=== PATIENT | male | born 1975 | race Caucasian/White ===

== ENCOUNTER → 2019-07-19 14:46 | Outpatient (CLI) | payer SELFPAY ==
[2019-07-02 14:52] VITALS: BMI 26.4
--- NOTE | 2019-07-19 14:51 | ECHOD_ITS ---
Reason For Study: CAD/ASHD Procedure This was a 2D Doppler, Color Flow transthoracic echocardiogram. Exam performed in department. Left Ventricle Normal size and thickness. The estimated ejection fraction is 65 %. No regional wall motion abnormalities noted. Right Ventricle Normal size and thickness. Normal systolic function. Atria The left atrium is mildly enlarged. Normal right atrium. Normal atrial septum. Mitral Valve The mitral valve is structurally normal. No prolapse or stenosis seen. Tricuspid Valve Normal tricuspid valve. Trivial tricuspid valve insufficiency. Right ventricular systolic pressure estimated to be 29 mmHg. Aortic Valve Trisinus/trileaflet aortic valve. Mild diffuse aortic valve thickening. There is no aortic stenosis. Pulmonic Valve Normal pulmonic valve. Trivial pulmonic valve insufficiency. Great Vessels Normal aortic root. Normal arch. Normal inferior vena cava. Inferior vena cava collapse with sniff. Pericardium/Pleural No pericardial effusion. MMode/2D Measurements & Calculations LVIDd: 4.5 cm IVSd: 1.1 cm Ao root diam: 2.8 cm LVIDs: 3.4 cm LVPWd: 1.0 cm RVDd: 3.7 cm FS: 25.6 % LAV(MOD-bp): 69.8 ml LA A4 area: 21.5 cm2 LA dimension(2D): 3.4 cm LAV(MOD-bp) Indexed: 34.7 ml/m2 LAV(MOD-sp2): 64.4 ml LAV(MOD-sp4): 70.2 ml RA A4 area: 14.1 cm2 Time Measurements MV dec time: 0.18 sec Doppler Measurements & Calculations MV E max logan: 97.3 cm/sec Lat Peak E' Logan: 14.1 cm/sec Med Peak E' Logan: 9.1 cm/sec MV A max logan: 72.7 cm/sec E/E' lat: 6.9 E/E' med: 10.6 MV E/A: 1.3 Ao V2 max: 170.6 cm/sec LV V1 max: 136.2 cm/sec PA V2 max: 95.2 cm/sec Ao max P.7 mmHg LV V1 max P.4 mmHg TR max logan: 242.4 cm/sec TR max P.5 mmHg Interpretation Summary The estimated ejection fraction is 65 %. The left atrium is mildly enlarged. Trivial tricuspid valve insufficiency. Right ventricular systolic pressure estimated to be 29 mmHg. There is no comparison study available. Ordering Physician: Destin Lucas Referring Physician: Kenroy Leslie Performed By: Caitlyn Astorga RDCS, RVT
== END ==
PROVIDERS: Family Provider Family Medicine; PCP Family Medicine; Referring Provider Internal Medicine Cardiovascular Disease; Visit Provider Internal Medicine Cardiovascular Disease
DX: I25.10 Atherosclerotic heart disease of native coronary artery without angina pectoris (principal); I16.0 Hypertensive urgency; I25.2 Old myocardial infarction; Z95.5 Presence of coronary angioplasty implant and graft; E78.5 Hyperlipidemia, unspecified; I10 Essential (primary) hypertension
CPT/HCPCS: 93306

== ENCOUNTER → 2019-07-24 12:52 | Outpatient (CLI) | payer SELFPAY ==
[2019-07-02 14:52] VITALS: BMI 26.4
--- NOTE | 2019-07-24 12:54 | STE_ITS ---
Reason For Study: CAD Stress Results Protocol: Ron Protocol Maximum Predicted HR: 175 bpm Target HR: 149 bpm % Maximum Predicted HR: 86 % DurationHeart Rate Stage (mm:ss) (bpm) BP Comment Baseline 61 114/68No Chest Pain Ron Protocol Stage I 3:00 100 124/68No Chest Pain Ron Protocol Stage II 3:00 116 146/70No Chest Pain Ron Protocol Stage III 3:00 134 142/72No Chest Pain Ron Protocol Stage IV 1:30 151 / No Chest Pain; Mild Dyspnea Recovery 81 118/70No Chest Pain Stress Duration: 10:30 mm:ss Maximum Stress HR: 151 bpm METS: 13 Baseline Echocardiogram Findings The estimated ejection fraction is 65 %. Stress Echo Wall motion Data Resting WM Intermediate WM Stress WM Resting Wall Motion Wall Motion Stress No regional wall motion No regional wall motion abnormalities noted. abnormalities noted. EKG Data The baseline ECG displays normal sinus rhythm. The patient exercised according to the regular Ron protocol for a total duration of 10:30. The maximum heart rate attained was 151 beats per minute. This was 86% of maximum predicted heart rate. The patient exercised into stage 4 of the Ron protocol. During stress, there were no ST or T wave changes noted to suggest ischemia. No clinical angina was noted. No arrhythmias noted. Interpretation Summary The estimated ejection fraction is 65 %. Normal, adequate, treadmill echocardiogram. Negative for ischemia by EKG and echocardiographic criteria. No anginal symptoms noted. No arrhythmias noted. Appropriate blood pressure response to exercise. Average exercise capacity for age. Test terminated due to leg discomfort. Final LVEF is 75%. No complications. Ordering Physician: Destin Lucas Referring Physician: Dr Leslie Performed By: Judie Valadez, RDCS, RVT
== END ==
PROVIDERS: Family Provider Family Medicine; PCP Family Medicine; Referring Provider Internal Medicine Cardiovascular Disease; Visit Provider Internal Medicine Cardiovascular Disease
DX: I25.2 Old myocardial infarction (principal); I16.0 Hypertensive urgency; I25.10 Atherosclerotic heart disease of native coronary artery without angina pectoris; Z95.5 Presence of coronary angioplasty implant and graft; E78.5 Hyperlipidemia, unspecified; I10 Essential (primary) hypertension
CPT/HCPCS: 93017; 93350

== ENCOUNTER → 2021-07-07 15:31 | Outpatient (CLI) | payer SELFPAY ==
[2021-07-07 17:08] LABS: Absolute Lymphocyte Count 1.56 X10^3/uL (0.83-4.51); Absolute Neutrophil Count 3.3 X10^3/uL (2.0-7.7); Basophil# 0.08 X10^3/uL; Basophil% 1.3 % (0-1); Eosinophil# 0.71 X10^3/uL; Eosinophils% 11.9 % (0-5); Hematocrit 40.5 % (40-54); Hemoglobin 13.7 g/dL (13.0-16.5); Lymphocyte # 1.56 X10^3/ul; Mean Corp Hgb Conc 33.8 g/dL (32-36); Mean Corpuscular Hgb 28.7 pg (27.0-32.0); Mean Corpuscular Volume 84.9 fL (80-94); Mean Platelet Vol. 9.8 fl (6.2-12.0); Monocyte# 0.37 X10^3/uL; Monocyte% 6.2 % (0-10); NRBC Flagged by Analyzer 0 % (0-5); Neutrophil # 3.25 X10^3/uL (2.7-7.7); Neutrophil % 54.3 % (47-70); Platelet Count 199 K/mm3 (150-450); RBC Distribution Width CV 13.7 % (11.6-14.6); RBC Distribution Width SD 42.3 fl (35.1-43.9); Red Blood Count 4.77 M/mm3 (4.6-6.2)
[2021-07-07 17:39] LABS: ALB/GLOB Ratio 1.1 RATIO (0.9-2.4); AST(SGOT) 37 U/L (15-37); Alanine Aminotransfer ALT/SGPT 74 U/L (16-61); Albumin, Serum 3.6 g/dL (3.2-5.0); Alkaline Phosphatase 122 U/L (45-117); Anion Gap 6 (5-15); BUN 16 mg/dL (7-18); BUN/Creat Ratio 18.4 RATIO (10-20); Bilirubin, Direct 0.12 mg/dL (0.00-0.30); Calcium,Total 8.8 mg/dL (8.5-10.1); Chloride 106 mmol/L (98-107); Cholesterol 238 mg/dL (200); Creatinine, Serum 0.87 mg/dL (0.70-1.30); EST Glomerular Filtration Rate 100 mL/min (>60); Est Glom Filt Rate - Afr Amer 121 mL/min (>60); Globulin 3.4 g/dL (2.2-4.2); Glucose 104 mg/dL (74-106); High Density Lipoprotein 36 mg/dL; LDH 165 U/L (87-241); Phosphorus 3.4 mg/dL (2.5-4.9); Potassium 4.1 mmol/L (3.5-5.1); Sodium Level 139 mmol/L (136-145); Triglycerides 343 mg/dL; Uric Acid 7.2 mg/dL (3.5-7.2); Very Low Density Lipoprotein 69 mg/dL (5-40)
== END ==
PROVIDERS: PCP Family Medicine
DX: E78.2 Mixed hyperlipidemia (principal); I10 Essential (primary) hypertension